=== PATIENT | male | born 1955 | race Caucasian/White ===

== ENCOUNTER 2021-03-23 18:21 | Observation (INO) | payer OTHER ==
[~2021-03-23] VITALS: Ht 182.9 cm; Wt 114.8 kg
[2021-03-23 18:21] VITALS: BP 156/92
[2021-03-23 19:01] LABS: ABSOLUTE BASOPHILS 0.1 thou/uL (0.0-0.2); ABSOLUTE EOSINOPHILS 0.3 thou/uL (0.0-0.7); ABSOLUTE LYMPHOCYTES 3.4 thou/uL (0.8-5.3); ABSOLUTE MONOCYTES 0.8 thou/uL (0.0-1.2); ABSOLUTE NEUTROPHILS 3.3 thou/uL (1.6-8.1); BASOPHILS 1.3 %; EOSINOPHILS 3.8 %; HEMATOCRIT 43.7 % (42.0-52.0); HEMOGLOBIN 14.7 gm/dL (14.0-18.0); LYMPHOCYTES 43.3 %; MCH 33.3 pg (26.0-34.0); MCHC 33.7 g/dL (28.0-37.0); MONOCYTES 10.2 %; MPV 8.8 fl. (7.2-11.1); NUCLEATED RBCS 0 /100WBC; PLATELET COUNT* 162 thou/uL (150-400); POLYS 41.4 %; RBC 4.42 mil/uL (4.50-6.00); RDW-CV 12.8 % (10.5-14.5)
[2021-03-23 19:09] LABS: INR 1.1; PROTIME 11.4 Seconds (9.20-11.50)
[2021-03-23] MEDS ORDERED: COZAAR 50 MG TA50 M1 (19:14)
[2021-03-23 19:27] LABS: ALBUMIN 3.7 g/dL (3.4-5.0); CALCIUM 8.8 mg/dL (8.5-10.1); CREATININE 1.2 mg/dL (0.6-1.3); POTASSIUM 3.4 mmol/L (3.5-5.1); TOTAL BILIRUBIN 0.4 mg/dL (<0.1-1.0)
[2021-03-24 02:07] VITALS: BP 108/60
--- NOTE | 2021-03-24 04:50 | NUR ---
ASSISTED PT TO BATHROOM
[2021-03-24 06:00] VITALS: BP 173/97
[2021-03-24 09:59] VITALS: BP 154/80
--- NOTE | 2021-03-24 11:02 | EKG ---
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1955 Requested By: Lonnie Da Silva Order Number: [id number] MD: Juan Izquierdo Measurements Intervals [place] Rate: 64 P: 47 [place]: 204 QRS: -12 QRSD: 105 T: 118 QT: 521 QTc: 538 Interpretive Statements Sinus rhythm Borderline repolarization abnormality Prolonged QT interval No previous ECG available for comparison Electronically Signed On 03-24-2021 11:02:37 CDT by Juan Izquierdo [email or web address] <ELECTRONICALLY SIGNED> By: Juan Izquierdo MD, [facility] 03/24/21 1102 33 33 Juan Izquierdo MD, [facility] /EPI
--- NOTE | 2021-03-24 11:07 | EKG ---
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1955 Requested By: Lidia Williamson Order Number: [id number] MD: Juan Izquierdo Measurements Intervals [place] Rate: 73 P: 13 [place]: 199 QRS: -1 QRSD: 97 T: 70 QT: 444 QTc: 490 Interpretive Statements Sinus rhythm Probable left atrial enlargement Borderline T wave abnormalities Borderline prolonged QT interval Compared to ECG 03/23/2021 19:34:15 no change Electronically Signed On 03-24-2021 11:07:33 CDT by Juan Izquierdo [email or web address] <ELECTRONICALLY SIGNED> By: Juan Izquierdo MD, [facility] 03/24/21 1107 0541 0541 Juan Izquierdo MD, [facility] /EPI
--- NOTE | 2021-03-24 11:10 | NUR ---
1050: CALLED INTO PT'S ROOM REGARDING QUESTIONS ABOUT POC. 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 PT REQUESTING TO BE D/C AT THIS TIME. THIS RN CALLED DR. SAEED. DR. SAEED STATES THAT SHE WOULD LIKE PT TO BE REEVALUATED BY NEUROLOGIST AND POSSIBLY BE OBSERVED OVERNOC. 1055: PT UPDATED ON PLAN OF CARE. PT STATES HE WOULD STILL LIKE TO BE D/C AT THIS TIME. 1100: DR. SAEED UPDATED ON PT'S WISHES AND STATES SHE WILL CONTACT NEUROLOGY TO SIGN OFF AND THEN COMPLETE DISCHARGE EDUCATION. 1105: PT AND SEAM CHECKER UPDATED ON PLAN OF CARE.
[2021-03-24] MEDS ORDERED: NORVASC5 MG PO (11:19)
[2021-03-24] MEDS ORDERED: ECOTRIN325 MG PO (11:19)
[2021-03-24 11:31] VITALS: BP 171/86
--- NOTE | 2021-03-24 12:20 | NUR ---
PT STATING HE DOES NOT WANT TO WAIT FOR HIS DISCHARGE PAPERWORK.
--- NOTE | 2021-03-24 12:23 | NUR ---
PT WAS BOARDING IN ER AND SEEN BY DR SAEED. DECISION MADE TO DISCHARGE PATIENT HOWEVER PATIENT REFUSED TO WAIT FOR ADMISSION COMPLETION AND/OR DISCHARGE PAPERWORK. WHEN THIS NURSE ARRIVED TO COMPLETE ADMISSION AND DISCHARGE PATIENT HAD ALREADY LEFT THE PREMISES. PT LEFT ER AT 1150.
--- NOTE | 2021-03-25 14:41 | NUR ---
PLEASE NOTE PT WAS DISCHARGED BEFORE P.T. EVAL AND TREAT COULD BE INITIATED.
== END 2021-03-24 11:50 | disposition home or self-care (01) ==
LOC: M.ERS 18:21 → M.TBA-ER 21:52
PROVIDERS: Emergency Medicine Emergency Medical Services; ADMIT Internal Medicine; ATTEND Internal Medicine
DX: R40.20 Unspecified coma (principal); Z20.822 Contact with and (suspected) exposure to COVID-19; R55 Syncope and collapse; R41.3 Other amnesia; I16.0 Hypertensive urgency; I10 Essential (primary) hypertension; I25.10 Atherosclerotic heart disease of native coronary artery without angina pectoris; E87.6 Hypokalemia; Z79.899 Other long term (current) drug therapy